=== PATIENT | male | born 1975 | race Two or more races ===

== ENCOUNTER 2017-11-17 19:42 | Emergency (ER) | payer MEDICAID ==
[2017-11-17] MEDS ORDERED: NOVOLOG FLEXPEN (INSULIN ASPART) 100 UNITS/ML SQ ONE (20:08)
--- NOTE | 2017-11-17 20:08 | Emergency Department Record ---
History of Present Illness - General Chief complaint: Hypergylcemia Stated complaint: HIGH BLOOD SUGER 455 Time Seen by Provider: 11/17/17 20:01 Source: Patient Mode of Arrival: Ambulatory Limitations: No limitations - History of Present Illness Initial comments: 42 yo male presents with concerns about getting his diabetes medication and pain medication. He had a recent jaw fracture. He had been crushing his medications but this proved to be difficult. His doctor switched him to insulin Flex Pens. He was not given the syringe tips however. He also has not been ablr to fill his pain medication. His accu check was 213 in the ED -: Days(s) Location: Generalized Quality: Aching Consistency: Constant Improves with: None Worsens with: None Associated Symptoms: Denies other symptoms - Christina Coma Scale Eye Response: (4) Open spontaneously Motor Response: (6) Obeys commands Verbal Response: (5) Oriented Christina Total: 15 - Related Data Home Medications Medication Instructions Recorded Confirmed Last Taken Insulin Aspart [Novolog Flexpen] 1 unit SQ ASDIR 11/17/17 11/17/17 Unknown Metformin HCl 500 mg PO BID 11/17/17 11/17/17 Unknown Allergies Allergy/AdvReac Type Severity Reaction Status Date / Time No Known Drug Allergies Allergy Verified 11/17/17 19:50 Review of Systems Constitutional: Denies: Chills, Fever, Malaise, Weakness Eyes: Denies: Eye discharge ENT: Denies: Congestion, Throat pain Respiratory: Denies: Cough Cardiovascular: Denies: Chest pain, Palpitations, Syncope Endocrine: Denies: Fatigue Gastrointestinal: Denies: Abdominal pain, Diarrhea, Nausea, Vomiting Genitourinary: Denies: Dysuria, Frequency, Hematuria Musculoskeletal: Denies: Arthralgia, Back pain, Myalgia Skin: Denies: Bruising, Change in color, Rash Neurological: Denies: Headache, Numbness, Weakness Psychiatric: Denies: Anxiety Hematological/Lymphatic: Denies: Blood Clots, Easy bleeding, Easy bruising, Swollen glands Physical Exam - General General Appearance: Alert, Oriented x3, Cooperative, No acute distress Limitations: No limitations - Head Head exam: Atraumatic, Normal inspection - Eye Eye exam: Normal appearance, PERRL. negative: Conjunctival injection, Scleral icterus - ENT ENT exam: Normal exam Ear exam: Normal external inspection Nasal Exam: Normal inspection Mouth exam: Normal external inspection Teeth exam: Other (Jaw is wired) - Neck Neck exam: Normal inspection. negative: Tenderness - Respiratory Respiratory exam: Normal lung sounds bilaterally. negative: Respiratory distress - Cardiovascular Cardiovascular Exam: Regular rate, Normal rhythm, Normal heart sounds - GI/Abdominal GI/Abdominal exam: Soft. negative: Tenderness - Rectal Rectal exam: Deferred - exam: Deferred - Extremities Extremities exam: Normal inspection - Back Back exam: Reports: Normal inspection, Full ROM. Denies: Muscle spasm, Rash noted, Tenderness - Neurological Neurological exam: Alert, Normal gait, Oriented X3 - Psychiatric Psychiatric exam: Normal affect, Normal mood - Skin Skin exam: Dry, Intact, Normal color, Warm Course Vital Signs 11/17/17 19:54 Temperature 97.4 F L Pulse Rate [ 91 H Pulse Ox Probe] Respiratory 18 Rate Blood Pressure 140/97 [Left Arm] Pulse Ox 100 - Reevaluation(s) Reevaluation #1: Accu check is 213 The patient is well appearing He will be provided an Rx for flex Pen syringes He will be given his insulin dose in the ED and one time pain medication He has follow up tomorrow 11/17/17 20:10 Disposition Disposition: Discharge Clinical Impression: Hyperglycemia, Jaw fracture Disposition: Home, Self-Care Condition: (1) Good Instructions: Diabetic Hyperglycemia (ED) Additional Instructions: Call your doctor tomorrow for close follow up regarding your insulin, pain medications and continued healing Return if worse, unable to get your insulin or glucose controlled. Forms: Patient Portal Access Quality - Quality Measures Quality Measures: N/A - Blood Pressure Screening Does Patient Have Any of the Following: No Blood Pressure Classification: Pre-Hypertensive BP Reading Systolic Measurement: 144 Diastolic Measurement: 85 Screening for High Blood Pressure: < Pre-Hypertensive BP, F/U Documented > [ [id number]] Pre-Hypertensive Follow-up Interventions: Referral to alternative/primary care provider.
[2017-11-17] MEDS ORDERED: MORPHINE SULFATE 10 MG/ML VIAL IM ONE (20:09)
== END 2017-11-17 20:46 | disposition home or self-care (01) ==
LOC: ER 19:42
DX: E11.65 Type 2 diabetes mellitus with hyperglycemia (principal); S02.609D Fracture of mandible, unspecified, subsequent encounter for fracture with routine healing; Z79.4 Long term (current) use of insulin; Z79.84 Long term (current) use of oral hypoglycemic drugs
CPT/HCPCS: 36416; 82948; 96372; 99283; J2270